=== PATIENT | male | born 1960 | race African-American/Black ===

== ENCOUNTER 2018-06-12 17:49 | Inpatient (IN) | payer OTHER ==
[~2018-06-12] VITALS: Ht 182.9 cm; Wt 93.6 kg
--- NOTE | 2018-06-12 18:12 | NUR ---
VAL FROM [facility] FOR POSS OVERDOSE. PER MEDICS PT WAS REPORTEDLY UNRESPONSIVE IN CELL, PULLED OUT AND GIVEN 3 ROUNDS OF NARCAN INTRAMUSCULARLY BY [facility] STAFF. MEDICS REPORT ON HIS ARRIVAL PT WAS AWAKE AND VOMITING. PT REFUSED ZOFRAN EN ROUTE. PT ARRIVED STATING HE IS COLD. WARM BLANKETS ARE GIVEN. NO SIGNS OF RESP DISTRESS SEEN
--- NOTE | 2018-06-12 18:13 | NUR ---
LAB AT BEDSIDE
[2018-06-12 18:21] LABS: BASOPHIL % 0.5 % (0-2); PLATELET COUNT 231 x10^3mcL (130-400); RED CELL DISTRIBUTION WIDTH 13.9 % (11.5-14.5)
[2018-06-12 18:41] LABS: CALCIUM 8.8 mg/dL (8.5-10.1); CARBON DIOXIDE 29.5 mmol/L (21-32); CHLORIDE SERUM 104 mmol/L (98-107); CREATININE SERUM 1.2 mg/dL (0.7-1.3); GFR1 > 60 mL/min; GLUCOSE SERUM 132 mg/dL (74-106); POTASSIUM SERUM 3.4 mmol/L (3.5-5.1); SODIUM SERUM 140 mmol/L (136-145)
[2018-06-12 18:45] LABS: ALKALINE PHOSPHATASE 41 U/L (46-116); ALT/SGPT 29 U/L (16-63); AST/SGOT 24 U/L (15-37); BILIRUBIN TOTAL 0.31 mg/dL (0.20-1.00); TOTAL PROTEIN, SERUM 7.8 g/dL (6.4-8.2)
--- NOTE | 2018-06-12 19:11 | NUR ---
REPORT GIVEN TO ROME SHARP.
--- NOTE | 2018-06-12 19:13 | NUR ---
PT STS HIS GLASSES ARE LEFT AT ALF
--- NOTE | 2018-06-12 19:18 | NUR ---
SPOKE TO DR. TAY REGARDING BP 170/105, PER DR. TAY GIVE CLONIDINE 0.1MG X 1
--- NOTE | 2018-06-12 19:22 | NUR ---
MADE DR. TAY AWARE PATIENT REPORTS NAUSEA AND STATES "I WON'T BE ABLE TO HOLD IT DOWN IF I TAKE IT. I'LL VOMIT IT." RECOMMENDED IV BP MEDICATION, NO ORDERS RECEIVED.
--- NOTE | 2018-06-12 19:25 | NUR ---
PT TAKEN TO CT. PT AWAKE, ALERT, ORIENTED, RESPIRATIONS EVEN AND UNLABORED. IV SITE CDI AND PATENT WITH NO S/S OF INFILTRATION, REDNESS, EDEMA, OR DRAINAGE
[2018-06-12] MEDS ORDERED: ASPIR 8181 MG PO (19:45)
[2018-06-12] MEDS ORDERED: REMERON30 MG PO (19:46)
[2018-06-12] MEDS ORDERED: NAPROSYN500 MG PO (19:46)
[2018-06-12] MEDS ORDERED: ARTHRITIS PAI42.5 GM (19:46)
[2018-06-12] MEDS ORDERED: LIPI20 PO (19:46)
[2018-06-12] MEDS ORDERED: HYDROCHLOROTHIA25 MG PO (19:46)
[2018-06-12] MEDS ORDERED: LISINOPRIL10 MG PO (19:47)
--- NOTE | 2018-06-12 19:58 | NUR ---
REPORT GIVEN TO ROBERT SHARP, ALL QUESTIONS AND CONCERNS WERE ADDRESSED
--- NOTE | 2018-06-12 20:15 | NUR ---
RECEIVED PT FROM ED VIA GUERNEY, PT WAS FOUND UNRESPOSIVE, ARRIVED ON THE UNIT VOMITING. AAOX4. C/O DIZZINESS. PUPILS ARE BRISK AND REACTIVE TO LIGHT. ABLE TO FOLLOW COMMANDS. NO SOB NOTED, LUNG SOUNDS CTA. DENIES CHEST PAIN/PRESSURE, SR ON THE MONITOR. C/O NAUSEA AND VOMITING. BOWEL SOUNDS ACTIVE. ABDOMEN IS SOFT. VOIDS. IV SITE PATENT AND INTACT. SIDE RAILS UPX2. CALL LIGHT ON REACH. BO=494/108. ENDORSED TO PRIMAR NURSE JONES FOR CONTINUITY OF CARE
--- NOTE | 2018-06-12 20:20 | NUR ---
RECEIVED PT. PT AAOX4 DENIES HEADACHE. TELE #20 SR HR 65, DENIES CHEST PAIN. BREATHING EVEN AND UNLABORED WITH NO SOB NOTED. IV LEFT HAND PATENT. PT N/V MEDICATED PER EMAR. SAFETY PRECAUTIONS IN PLACE. GUARDS AT BEDSIDE. WILL CONTINUE TO MONITOR.
[2018-06-12 20:24] VITALS: BP 155/108
[2018-06-12 20:30] VITALS: Ht 182.9 cm; Wt 93.6 kg
--- NOTE | 2018-06-12 21:22 | NUR ---
PT REFUSED PO MEDICATIONS DUE TO CONTINUE TO FEEL NAUSEUS.
[2018-06-12 22:30] VITALS: BP 123/78
--- NOTE | 2018-06-12 23:16 | NUR ---
CALLED DR TAY FOR CODE STATUS AND DIET ORDER, NEW ORDERS CARRIED OUT.
--- NOTE | 2018-06-13 00:11 | NUR ---
PT RESTING, BREATHING EVEN AND UNLABORED WITH NO SOB NOTED. NO SIGNS OF ACUTE DISTRESS NOTED. CALL BUTTON WITHIN REACH. SAFETY PRECAUTIONS IN PLACE. GUARDS AT BEDSIDE. WILL CONTINUE TO MONITOR.
[2018-06-13 01:01] LABS: microscopic required? NO
[2018-06-13 01:20] LABS: UA SPECIFIC GRAVITY >=1.030 (1.005-1.035)
[2018-06-13 01:21] LABS: urine erythrocyte NEGATIVE (NEGATIVE)
[2018-06-13 01:33] LABS: AMPHETAMINE QUAL UR NONE DETECTED (See below)
--- NOTE | 2018-06-13 02:29 | NUR ---
PT REPORTED FEELING DIZZY, MEDICATED PER EMAR. WILL MONITOR.
--- NOTE | 2018-06-13 03:54 | NUR ---
PT REPORTED FEELING NAUSEAUS, MEDICATED PER EMAR. WILL MONITOR.
--- NOTE | 2018-06-13 05:31 | NUR ---
PT SLEPT ON AND OFF THROUGHOUT THE NIGHT WITH NO SIGNS OF DISTRESS. BREATHING EVEN AND UNLABORED ON RA, NO SOB NOTED. IV LEFT HAND PATENT, SL. PT REPORTED FEELING NAUSEAUS AND DIZZY THROUGHOUT THE NIGHT, MEDICATED PER EMAR WITH RELEIF. CALL BUTTON WITHIN REACH. SAFETY PRECAUTIONS IN PLACE. GUARDS AT BEDSIDE. WILL CONTINUE TO MONITOR AND ENDORSE CARE TO DAY SHIFT RN.
[2018-06-13 06:22] VITALS: BP 134/84
--- NOTE | 2018-06-13 07:03 | NUR ---
RECEIVED PATIENT HANDOFF REPORT FROM NARROW FABRICS WEAVER NURSE. PATIENT WAS SEEN LAYING IN BED RESTING COMFORTABLY LAYING ON RIGHT SIDE. IV IN LEFT HAND SALINE LOCKED. RESPIRATIONS EVEN, NO RESPIRATORY DISTRESS NOTED. BED IN LOW POSITION. BED RAILS UP X2. ALL QUESTIONS AND CONCERNS ADDRESSED, ALL SAFETY PRECAUTUIONS MAINTAINED. DEPUTY AT BEDSIDE.
[2018-06-13 07:19] LABS: BASOPHIL % 1.7 % (0-2); PLATELET COUNT 231 x10^3mcL (130-400)
--- NOTE | 2018-06-13 07:22 | NUR ---
PT RESTING, BREATHING EVEN AND UNLABORED WITH NO SIGNS OF DISTRESS NOTED. SAFETY PRECAUTIONS IN PLACE. GUARDS AT BEDSIDE. ENDORSED CARE TO DAY SHIFT RN, ALL QUESTIONS ADDRESSED.
[2018-06-13 07:39] LABS: CARBON DIOXIDE 29.5 mmol/L (21-32); CHLORIDE SERUM 103 mmol/L (98-107); CREATININE SERUM 1.2 mg/dL (0.7-1.3); GFR1 > 60 mL/min; GLUCOSE SERUM 125 mg/dL (74-106); POTASSIUM SERUM 3.7 mmol/L (3.5-5.1); SODIUM SERUM 140 mmol/L (136-145)
[2018-06-13 07:55] LABS: T4(THYROXINE) 6.8 ug/dL (4.7-13.3)
--- NOTE | 2018-06-13 08:50 | NUR ---
ADMINISTERED MORNING MEDICATION. PATIENT TOLORATED WELL. ALL QUESTIONS AND CONCERNS ADDRESSED. ALL SAFETY PRECAUTIONS MAINTAINED.
[2018-06-13 08:59] VITALS: BP 153/92
[2018-06-13 09:00] VITALS: BP 153/92
--- NOTE | 2018-06-13 10:30 | NUR ---
EMESIS X1 250ML
--- NOTE | 2018-06-13 10:39 | NUR ---
PATIENT COMPLAINED OF VOMITING AND NAUSEA. MEDICATED (SEE EMAR). TOLORATED MEDICATION WELL.
--- NOTE | 2018-06-13 11:16 | NUR ---
REASSESSED PATIENT FOR PERSISTENT NAUSEA AFTER ADMINISTERING ANITVERT. PATIENT DENIES EPISODE OF EMESIS AFTER MEDICATION. NAUSEA STILL PERSISTS. COMPLAINING OF HEADACHE 12/11. OFFERD TYLENOL PER PATIENT " I DONT WANT ANYTHING RIGHT NOW BECAUSE I FEEL LIKE I WILL THROW IT UP". WILL MEDICATE FOR NAUSEA ORDERD.
[2018-06-13 13:21] VITALS: BP 145/94
[2018-06-13 15:02] LABS: ERYTHROCYTE SED RATE 11 mm/hr (0-20)
[2018-06-13 18:20] VITALS: BP 134/85
--- NOTE | 2018-06-13 19:20 | NUR ---
PT RECIEVED FROM THE DAY SHIFT RN, PT IS STATING FEELING NAUSEA AND HAD AN EMESIS EPISODE SHORTLY AFTER RECIEVING PHENERGAN FOR THE NAUSEA. EMESIS WAS 300 ML, NO BLOOD IN EMESIS NOTED. PT APPEARS TO BE FATIGUED AND DROWSY BUT IS EASILY AROUSABLE WITH VERBAL STIMULUS, PT IS ALERT AND ORIENTED X4, NO SOB NOTED. PT IS SHACKLED TO THE BED, 2 GUARDS IN THE ROOM. SAFETY AND COMFORT MEASURES MAINTAINED, BED IN LOWEST POSITION, CALL LIGHT WITHIN REACH.
--- NOTE | 2018-06-13 19:35 | NUR ---
GAVE HANDOFF REPORT TO CULINARY ARTS TEACHER NURSE. ALL QUESTIONS AND CONCERNS ADDRESSED. ALL SAFETY PRECAUTIONS MAINTAINED. WILL ENDORSE CARE TO CULINARY ARTS TEACHER NURSE.
[2018-06-13 22:22] VITALS: BP 127/83
--- NOTE | 2018-06-14 01:21 | NUR ---
PT IS RESTING IN BED WITH EYES CLOSED. GUARDS AT THE BEDSIDE, PT SHACKLED TO THE BED. EXTREMITY WITH SHACKLES POSITIIVE CSM. NO ACUTE DISTRESS NOTED. NO FACIAL GRIMACING NOTED. WILL CONTINUE TO MONITOR AT THIS TIME.
[2018-06-14 04:15] LABS: RAPID PLASMA REAGIN Non Reactive (Non Reactive)
--- NOTE | 2018-06-14 05:28 | NUR ---
PT HAS SLEPT IN LONG INTERVALS THROUGHOUT THE SHIFT, PT HAS BEEN CALM AND COOPERATIVE WITH CARE. NO ACUTE DISTRESS NOTED, NO SOB NOTED, NO ACUTE RESP DISTRESS NOTED. PT STATES MINOR IMPROVEMENT OF DIZZINESS AND LIGHTHEADEDNESS BUT STILL HAS IT AT TIMES. NO COMPLAINT OF PAIN AT THIS TIME. SAFETY AND COMFORT MEASURES MAINTAINED, BED IN LOWEST POSITION, CALL LIGHT WITHIN REACH, WILL ENDORSE CONTINUITY OF CARE AT THIS TIME.
[2018-06-14 06:19] LABS: BASOPHIL % 0.3 % (0-2); PLATELET COUNT 217 x10^3mcL (130-400); RED CELL DISTRIBUTION WIDTH 14.2 % (11.5-14.5)
[2018-06-14 06:27] VITALS: BP 91/58
--- NOTE | 2018-06-14 07:10 | NUR ---
RECEIVED BEDSIDE REPORT FROM RN AT THIS TIME. PATIENT SEEN RESTING COMFORTABLY IN BED. NO APPARENT DISTRESS OR DISCOMFORT NOTED. BREATHING EVEN AND UNLABORED. NO RESPIRATORY DISTRESS NOTED. PATIENT DENIES CHEST PAIN AT THIS TIME. TELE IN PLACE. IV PATENT AND INTACT. ALL QUESTIONS AND CONCERNS ADDRESSED. ALL NEEDS ATTENDED TO. GUARDS AT BEDSIDE. ALL SAFETY PRECAUTIONS MAINTAINED. WILL CONTINUE TO MONITOR
[2018-06-14 09:00] VITALS: BP 104/70
[2018-06-14 09:20] LABS: RHEUMATOID ARTHRITIS FACTOR 10.4 IU/mL (0.0-13.9)
--- NOTE | 2018-06-14 09:42 | NUR ---
MORNING MEDICATIONS ADMINISTERED AT THIS TIME. PATIENT TOLERATED MEDICATIONS WELL. NO ADVERSE EFFECTS NOTED. ALL NEEDS ATTENDED TO. WILL CONTINUE TO MONITOR
[2018-06-14 12:37] VITALS: BP 104/70
--- NOTE | 2018-06-14 13:38 | NUR ---
SPOKE TO DR TAY REGARDING PATIENT D/C ORDER. NOTIFIED DR TAY PATIENT C/O DIZZINESS AND MEDICATED WITH ANTIVERT. PATIENT REASSESSED TO SEE IF PATIENT CAN AMBULATE. REPORTED TO DR TAY PATIENT IS UNABLE TO STAND UP ON SIDE OF BED AND C/O EXTREME DIZZINESS. PER DR TAY, PATIENT UNABLE TO BE DISCHARGED TODAY AND DISCHARGE WILL BE ON HOLD FOR TODAY 06/14. ALL QUESTIONS AND CONCERNS ADDRESSED. ALL NEEDS ATTENDED TO.
[2018-06-14 14:00] VITALS: BP 123/80
[2018-06-14 17:39] VITALS: BP 137/85
--- NOTE | 2018-06-14 17:46 | NUR ---
PATIENT SITTING UP IN BED EATING DINNER SLOWLY. PATIENT TOLERATING DIET FAIRLY. NO APPARENT DISTRESS OR DISCOMFORT NOTED. PATIENT DENIES NAUSEA AT THIS TIME. ALL NEEDS ATTENDED TO. GUARDS AT BEDSIDE. ALL SAFETY PRECAUTIONS MAINTAINED
--- NOTE | 2018-06-14 18:35 | NUR ---
PATIENT RESTING COMFORTABLY IN BED AT THIS TIME. NO DISTRESS OR DISCOMFORT NOTED. IV PATENT AND INTACT TO LEFT HAND. ALL QUESTIONS AND CONCERNS ADDRESSED. ALL NEEDS ATTENDED TO. SAFETY PRECAUTIONS MAINTAINED. WILL ENDORSE ALL CARE TO BALANCING MACHINE SET UP WORKER NURSE. GUARDS AT BEDSIDE
--- NOTE | 2018-06-14 19:30 | NUR ---
PT IS RESTING IN BED WITH EYES CLOSED AT THIS TIME. NO ACUTE DISTRESS NOTED. PT STATES NAUSEA HAS IMPROVED BUT NOT BY MUCH. PT STATES STILL FEELING DIZZY, AND STATES " WHEN I CLOSE MY EYES, MY HEAD SPINS." WILL CONTINUE TO MONITOR. SAFETY AND COMFORT MEASURES MAINTAINED, BED IN LOWEST POSITION, PT RLE SHACKLED TO THE BED, RLE CMS. 2 GUARDS AT THE BEDSIDE. WILL CONITNUE TO MONITOR AT THIS TIME.
[2018-06-14 20:37] VITALS: BP 127/86
--- NOTE | 2018-06-15 00:07 | NUR ---
PT IS RESTING IN BED WITH EYES CLOSED AT THIS TIME. NO ACUTE DISTRESS NOTED. PT IS SHACKLED TO THE BED AND IS CMS IS INTACT. 2 GUARDS AT THE BEDSIDE. WILL CONTINUE TO MONITOR AT THIS TIME.
--- NOTE | 2018-06-15 02:16 | NUR ---
PT HAS BEEN RESTING IN BED WITH EYES CLOSED. NO ACUTE DISTRESS NOTED. GUARDS AT THE BEDSIDE. WILL CONTINUE TO MONITOR.
--- NOTE | 2018-06-15 05:07 | NUR ---
PT HAS RESTED IN LONG INTERVALS THROUGHOUT THE SHIFT, PT HAS BEEN ALERT AND ORIENTED X4, DROWSY AT TIMES BUT EASILY AROUSABLE WITH VERBAL STIMULUS. PT STATES HE STILL FEELS DIZZY AT TIMES. NO COMPLAINT OF PAIN AT THIS TIME. 2 GUARDS AT THE BEDSIDE. SAFETY AND COMFORT MEASURES MAINTAINED, BED IN LOWEST POSITION, CALL LIGHT WITHIN REACH, WILL ENDORSE CONTINUITY OF CARE TO THE ONCOMING RN.
[2018-06-15 05:35] VITALS: BP 114/78
--- NOTE | 2018-06-15 07:05 | NUR ---
RECEIVED BEDSIDE REPORT FROM CLIP RIVETER NURSE AT THIS TIME. PATIENT RESTING COMFORTABLY IN BED. NO APPARENT DISTRESS OR DISCOMFORT NOTED. BREATHING EVEN AND UNLABORED. NO RESPIRATORY DISTRESS NOTED. NO INDICATION OF CHEST PAIN AT THIS TIME. PATIENT C/O MILD DIZZINESS AT THIS TIME. IV PATENT AND INTACT. ALL NEEDS ATTENDED TO. ALL SAFETY PRECAUTIONS MAINTAINED. BED RAILS X2. CALL LIGHT WITHIN REACH. GUARDS AT BEDSIDE. WILL CONTINUE TO MONITOR
--- NOTE | 2018-06-15 09:28 | NUR ---
MORNING MEDICATIONS ADMINISTERED. PATIENT TOLERATED WELL. NO ADVERSE EFFECTS NOTED. ALL NEEDS ATTENDED TO. WILL CONTINUE TO MONITOR
[2018-06-15 09:32] VITALS: BP 112/70
[2018-06-15 12:23] VITALS: BP 101/71
--- NOTE | 2018-06-15 12:56 | NUR ---
PATIENT SITTING UP IN BED EATING LUNCH AT THIS TIME. PATIENT TOLERATING DIET FAIRLY. NO APPARENT DISTRESS OR DISCOMFORT NOTED. ALL NEEDS ATTENDED TO. WILL CONTINUE TO MONITOR
--- NOTE | 2018-06-15 15:25 | NUR ---
SPOKE TO DR TAY REGARDING MRI ORDER. DR TAY AWARE EARLIEST MRI TIME WITH BE TOMORROW 06/16/[address] TAY, PATIENT TO WORK WITH PT FIRST AND SEE PT EVAL. SPOKE TO PATIENT REGARDING POC. PATIENT VERBALIZES UNDERSTANDING. ALL QUESTIONS AND CONCERNS ADDRESSED. ALL NEEDS ATTENDED TO. WILL CONTINUE TO MONITOR
[2018-06-15 17:35] VITALS: BP 126/83
--- NOTE | 2018-06-15 18:37 | NUR ---
PATIENT RESTING COMFORTABLY IN BED AT THIS TIME. NO APPARENT DISTRESS OR DISCOMFORT NOTED. IV PATENT AND INTACT. ALL QUESTIONS AND CONCERNS ADDRESSED. SAFETY PRECAUTIONS MAINTAINED. ALL NEEDS ATTENDED TO. WILL ENDORSE ALL CARE TO TRAINING AND DEVELOPMENT PROJECT LEADER NURSE. GUARDS AT BEDSIDE
--- NOTE | 2018-06-15 19:10 | NUR ---
PT RECIEVED FROM THE DAY SHIFT RN. PT IS ALERT AND ORIENTED X4, CALM AND COOPERATIVE WITH CARE. NO ACUTE DISTRESS NOTED. WILL CONTINUE TO MONITOR AT THIS TIME.
[2018-06-15 21:20] VITALS: BP 125/84
--- NOTE | 2018-06-16 00:41 | NUR ---
PT IS RESTING IN BED WITH EYES CLOSED AT THIS TIME. NO ACUTE DISTRESS NOTED. PT HAS BEEN DROWSY BUT EASILY AROUSABLE WITH VERBAL STIMULUS, NO COMPLAINT OF PAIN AT THIS TIME. WILL CONTINUE TO MONITOR AT THIS TIME.
--- NOTE | 2018-06-16 03:52 | NUR ---
PT IS RESTING IN BED WITH EYES CLOSED AT THIS TIME. NO ACUTE DISTRESS NOTED. PT HAS BEEN CALM AND COOPERATIVE WITH CARE. SAFETY AND COMFORT MEASURES MAINTAINED, BED IN LOWEST POSITION, CALL LIGHT WITHIN REACH, WILL CONTINUE TO MONITOR.
--- NOTE | 2018-06-16 05:07 | NUR ---
PT HAS SLEPT IN LONG INTERVALS THROUGHOUT THE SHIFT, PT HAS NO COMPLAINT OF PAIN AT THIS TIME. PT HAS BEEN CALM AND COOPERATIVE WITH CARE. PT STILL HAS COMPLAINT OF DIZZINESS BUT STATES IT HAS SLIGHTLY IMPROVED. PT HAS NO COMPLAINT OF NAUSEA AT THIS TIME. 2 GUARDS AT THE BEDSIDE. PT IS SHACKLED TO THE BED AND EXTREMITY HAS CMS. SAFETY AND COMFORT MEASURES MAINTAINED, BED IN LOWEST POSITION, CALL LIGHT WITHIN REACH, WILL ENDORSE CONTINUITY OF CARE TO THE ONCOMING RN. WILL CONTINUE TO MONITOR AT THIS TIME.
[2018-06-16 05:18] VITALS: BP 102/64
--- NOTE | 2018-06-16 07:42 | NUR ---
COMPLAINT OF PAIN, LEFT CHEST, NON-RADIATING, DESCRIBES SQUEEZING, RATES 5/10, REPRODUCIBLE, DENIES SOB. SINUS UZAIR/SINUS RHYTHM ON TELE, HR RANGES BETWEEN 57-63. GIVEN PAIN MED, SEE MAR. AA/OX4. PERRLA, BRISK, SIZE 1. FOLLOWS COMPLEX COMMANDS, RESPONDS TO VERBAL STIMULI, FACE SYMMETRICAL, SPEECH CLEAR. NO PEARSON. COMPLAINT OF CONTINUOUS DIZZINESS, GIVEN MED FOR DIZZINESS. FALL PREC IN PLACE. INSTRUCTED TO USE CALL LIGHT TO CALL FOR ASSISTANCE BEFORE AMBULATING, VERBALIZED UNDERSTANDING. SIDE RAILS UP X2. VS STABLE. NO S/S OF ACUTE DISTRESS. CIM OFFICERS AT BEDSIDE. PT INSTRUCTED TO USE CALL LIGHT TO CALL FOR ASSISTANCE PRN. VERBALIZED UNDERSTANDING. PT CALM/COOPERATIVE AT THIS TIME. RR EVEN/UNLABORED. NO SOB ON ROOM AIR. BED IN LOW POSITION. CALL LIGHT WITHIN REACH. WILL CONT. TO MONITOR.
[2018-06-16 08:44] VITALS: BP 113/81
--- NOTE | 2018-06-16 11:29 | NUR ---
TELE NEURO CONTACTED AT [phone] PER PHYSICIAN ORDER. ESTIMATED APPOINTMENT TIME BETWEEN [phone]. AWAITING FURTHER INSTRUCTIONS. WILL CONT. TO MONITOR.
--- NOTE | 2018-06-16 13:13 | NUR ---
LATE ENTRY: PT LAYING IN BED. AA/OX4. COMPLAINT OF CONTINUOUS DIZZINESS. REPORTED MILD RELIEF FROM PREVIOUS MED FOR DIZZINESS. DENIES N/V. NO PEARSON. NO COMPLAINT OF CHEST PAIN. NO SOB ON ROOM AIR. REPORTED DIZZINESS WHILE AMBULATING WITH PHYSICAL THERAPY. ORTHO VS: STANDING--133/95, HR 75 SUPINE--130/80, HR 62 SITTING--127/94, HR 70. RETURNED BACK TO BED WITH ASSIST FROM PHYSICAL THERAPIST. PT LAYING IN BED EATING LUNCH. NO S/S OF ACUTE DISTRESS. CIM GUARDS AT BEDSIDE. IV WNL, IV SALINE LOCKED. CALM/COOPERATIVE. BED IN LOW POSITION. CALL LIGHT WITHIN REACH. SIDE RAILS UP X2. WILL CONT. TO MONITOR.
[2018-06-16 13:28] VITALS: BP 122/84
--- NOTE | 2018-06-16 14:07 | NUR ---
TELE NEURO CONSULT COMPLETED BY DR. NICHOLAS JENKINS AT PT BEDSIDE. AWAITING FURTHER ORDERS.
[2018-06-16 17:07] VITALS: BP 130/89
--- NOTE | 2018-06-16 18:25 | NUR ---
PT LAYING IN BED. AA/OX4. COMPLAINT OF CONTINOUS DIZZINESS, GIVEN MEDICATION, SEE MAR. NO COMPLAINT OF PAIN. NO SOB ON ROOM AIR. RR EVEN/UNLABORED. CALM/COOPERATIVE. NO S/S OF ACUTE DISTRESS. CIM OFFICERS AT BEDSIDE. NO COMPLAINT OF PEARSON. TOLERATING REGULAR DIET WELL. NO N/V. NO ABD. PAIN. BED IN LOW POSITION. CALL LIGHT WITHIN REACH. WILL ENDORSE TO ONCOMING SHIFT.
--- NOTE | 2018-06-16 19:30 | NUR ---
RECEIVED PT IN BED RESTING. NO SOB NOTED. NO C/O PAIN. ON SALINE LOCK PATENT AND INTACT. BED IN LOWEST POSITION,CALL LIGHT WIHTIN REACH. WILL CONTINUE TO MONITOR.
[2018-06-16 21:45] VITALS: BP 115/75
--- NOTE | 2018-06-17 03:42 | NUR ---
HR DROPPED TO 39. CHECKED BP: 108/70, HR: 55, O2SAT 96% RA. NO SOB NOTED.ASYMTOMATIC.DENIES ANY CP OR PRESSURE. WILL CONTINUE TO MONITOR.
--- NOTE | 2018-06-17 05:35 | NUR ---
PT APPEARS TO BE SLEEPING.NO DISTRESS NOTED.NO C/O PAIN. BED IN LOWEST POSITION,CALL LIGHT WITHIN REACH. WILL CONTINUE TO MONITOR.
[2018-06-17 06:00] VITALS: BP 109/72
--- NOTE | 2018-06-17 07:30 | NUR ---
RECEIVED PATIENT FROM LILA HANDY. PATIENT IN BED SLEEPING, NO COMPLAINTS OF PAIN OR SIGNS OF DIZZINESS. GAS STATION OPERATOR IN ROOM. CALL LIGHT IN REACH, WILL CONTINUE TO MONITOR.
--- NOTE | 2018-06-17 07:32 | NUR ---
CARE ENDORSED TO DAY NURSE CHIQUIS.
[2018-06-17 08:15] VITALS: BP 115/78
--- NOTE | 2018-06-17 10:41 | NUR ---
PATIENT IN BED, NO COMPLAINTS OF DIZZINESS OR VERTIGO. CALL LIGHT IN REACH.
--- NOTE | 2018-06-17 11:39 | NUR ---
PATIENT W PT GENNY. PT GENNY STATES THAT PATIENT STILL DIZZINESS W VERTIGO. PRN ANTIVERT PO GIVEN TO PATIENT, WILL CONTINUE TO MONITOR. CALL LIGHT IN REACH.
[2018-06-17 12:00] VITALS: BP 117/81
--- NOTE | 2018-06-17 13:20 | NUR ---
PATIENT IN BED AT THIS TIME. SLEEPING. CALL LIGHT IN SHERIFF SAMI AT BEDSIDE. WILL CONTINUE TO MONITOR FOR VERTIGO.
--- NOTE | 2018-06-17 14:40 | NUR ---
SPOKE TO RADIOLOGY DEPT TO FOLLOW UP WITH PRODUCT MANAGEMENT CONSULTANT'S COVERING AND LINING SUPERVISOR E.T.A. STAFF FROM RADIOLOGY SAYS THAT NO AUTHORIZATION YET FOR THE NRI AND NEED TO OBTAIN AUTH FROM [employer]. CALLED TO SANTI(PEANUT BUTTER MAKER) AND MADE HER AWARE OF ABOVE AND AUTH WAS OBTAINED FROM SANTI. CHIQUIS SHARP ASSIGNED TO THIS PT MADE AWARE OF ABOVE.
--- NOTE | 2018-06-17 16:35 | NUR ---
CALLED AND SPOKE TO JILL(ICING MAKER) AND MADE HER AWARE OF STATUS OF MRI AND THAT CHIQUIS SHARP HAD RECEIVED A CALL FROM RADIOLOGY AND SAYS THAT MRI WONT BE DONE NOT UNTIL TOMORROW.
[2018-06-17 17:00] VITALS: BP 126/95
--- NOTE | 2018-06-17 18:20 | NUR ---
PATIENT IN BED W NO COMPLAINTS OF PAIN. RN SURGERY AT BEDSIDE. NOTIFIED BY RADIOLOGY THAT PATIENT MRI WILL OCCUR TOMORROW EVENING. MRI QUESTIONNAIRE FILLED AND SIGNED IN PATIENT CHART. WILL ENDORSE TO ONCOMING NURSE, CALL LIGHT IN REACH.
--- NOTE | 2018-06-17 19:15 | NUR ---
RECEIVED PT IN BED COMFORTABLY RESTING. NO SOB NOTED. NO C/O CP OR ANY PRESSURE. IV SITE PATENT AND INTACT. BED IN LOWEST POSITION,CALL LIGHT WITHIN REACH.WILL CONTINUE TO MONITOR.
--- NOTE | 2018-06-18 05:17 | NUR ---
PT APPEARS TO BE SLEEPING. NO ACUTE RESPIRATORY DISTRESS NOTED.NO C/P CP OR ANY PRESSURE.BE DIN LOWEST POSITION,CALL LIGHT WITHIN REACH. WILL CONTINUE TO MONITOR.
[2018-06-18 05:30] VITALS: BP 96/67
--- NOTE | 2018-06-18 07:25 | NUR ---
CARE ENDORSED TO DAY NURSE SARAVANAN. ALL CONCERN AND QUESTIONS WERE ADDRESSED.
--- NOTE | 2018-06-18 07:31 | NUR ---
PHYSICAL THERAPY DAILY NOTES CO-SIGN All documentation done by the Hay Stacker for 06/18/18 has been reviewed. I agree with the documentation. Reviewed/Co-Signed by: Catalina Alfredo PT Documentation Done by:GENNY KING OUTBOARD MOTORBOAT OPERATOR CO-SIGNED FOR THE DATE 06/17/18
--- NOTE | 2018-06-18 08:00 | NUR ---
RECEIVED PATIENT SLEEPY BUT ARROUSABLE GAURDS AT BEDSIDE AND SECURITY HAS BEEN MAINTAINED. PATIENT VITALS AT THIS TIME AT 97.7, 65, 18, 96/67, 98% ON ROOM AIR. PATIENT HAS BEEN WITH ELEVATED BP AND NOW IS LOW. HE HAS HAD INTERMITTANT DIZZINESS AND DENIES NAUSEA AT THIS TIME. TOLERATE DIET AND ON TELE NUMBER 20 AND IS AT UZAIR HEARTRATE AND NOTED INTERMITTANT WITH NSR AND DENIES CHEST PAIN HE IS AT PULSE RATE 65 AT THIS TIME. PATIENT NOTED LABS IS THE GLUCOSE AT 125 AND THE ALK AT 41. PATIENT HAS BEEN HEPLOCKED AND IS AMBULATORY WITH ASSIST. PATIENT AHS BEEN WITH GENERAL MILD WAEAKNESS AND NOTED IS WITH OVERDOSING OF METHAMPHETAMINE WHILE IN HALF-WAY. PATIENT HAS HISTORY OF HTN.HLD. METH ABUSE AND DEPRESSION.
--- NOTE | 2018-06-18 12:01 | NUR ---
PATIENT GIVEN ATIVERT AND WILL MONITOR FOR REFFECTIVENESS.
--- NOTE | 2018-06-18 17:34 | NUR ---
THE ANTIVERT WAS EFFECTOVE AT THIS TIME.
--- NOTE | 2018-06-18 19:41 | NUR ---
RECEIVED PATIENT IN BED AWAKE ALERT AND ORIENTED WITH NO SIGN OF ACUTE RESPIRATORY DISTRESS. BREATHING EASYA ND NOLABOR SATTING AT 97% RA. TELE#20 NSR ON MONITOR, DENIES CHESTPAIN. PATIENT HEPLOCK FLUSHED WITH NS. WILL CONTINUE TO MONITOR. CALL LIGHT WITHIN REACH. CIM OFFICERS AT BEDSIDE.
[2018-06-18 20:50] VITALS: BP 103/73
--- NOTE | 2018-06-19 00:04 | NUR ---
APPEARS SLEEPING WITH EYES CLOSED, NO SIGN OF DISTRESS NOTED. CIM OFFICERS AT BEDSIDE.
--- NOTE | 2018-06-19 05:09 | NUR ---
SLEPT AT LONG INTERVALS, DENIES PAIN AND DISCOMFORT THE ENTIRE SHIFT. ALL NEEDS ATTENDED.
[2018-06-19 05:30] VITALS: BP 101/64
--- NOTE | 2018-06-19 07:12 | NUR ---
PHYSICAL THERAPY DAILY NOTES CO-SIGN All documentation done by the Nursing Agency Manager for 06/19/18 has been reviewed. I agree with the documentation. Reviewed/Co-Signed by: Catalina Alfredo PT Documentation Done by:GENNY KING POLISHING MACHINE OPERATOR HELPER CO-SIGNED FOR THE DATE 06/18/18
[2018-06-19 10:15] VITALS: BP 107/72
[2018-06-19 11:04] VITALS: BP 107/72
[2018-06-19 13:37] VITALS: BP 115/80
--- NOTE | 2018-06-19 13:46 | NUR ---
GAVE DISCHARGE INSTRUCTIONS AND PACKET TOHTE GUARDS AT BEDSIDE AND AWAIT PRINCE CAR DISPLAY TRIMMER INDICATED. PATIENT HAD IV AND TELE REMOVED PRIOR TO DISCHARGE. PATIENT IS ANXIOUS TO GO BACK TO [facility]. ADVISED TO BE CAREFUL WHEN FIRST GET UP FROM LYING POSITION AND CLOSING HSI EYES WHILE SHOWERING HE MAKE BE OFF BALANCE OR HAVE HYPOTENSION AT THAT TIME. PATIENT DENIES ANY ACUTE DISTRSS AT THIS TIME.
--- NOTE | 2018-06-20 07:42 | NUR ---
PHYSICAL THERAPY DAILY NOTES CO-SIGN All documentation done by the Enrollment Consultant for 06/20/18 has been reviewed. I agree with the documentation. Reviewed/Co-Signed by: Catalina Alfredo PT Documentation Done by:GENNY KING COMPUTER ANALYST CO-SIGNED FOR 06/19/18
== END 2018-06-19 14:00 | disposition other institution (70) | DRG 917 ==
LOC: ED 17:49 → DU 19:04
PROVIDERS: Emergency Medicine; ADMIT Internal Medicine
DX: T50.991A Poisoning by other drugs, medicaments and biological substances, accidental (unintentional), initial encounter (principal); G93.41 Metabolic encephalopathy; Y92.149 Unspecified place in prison as the place of occurrence of the external cause; I16.0 Hypertensive urgency; F15.10 Other stimulant abuse, uncomplicated; E78.5 Hyperlipidemia, unspecified; R42 Dizziness and giddiness; F32.9 Major depressive disorder, single episode, unspecified; Z68.27 Body mass index [BMI] 27.0-27.9, adult; I10 Essential (primary) hypertension; Y92.89 Other specified places as the place of occurrence of the external cause
CPT/HCPCS: 86431; 97116-GP; 97530-GP; G0480; J2060; J2405; J2550; J7030; J8597; Q0092